=== PATIENT | male | born 1980 | race African-American/Black ===

== ENCOUNTER 2018-05-21 09:54 | Emergency (ER) | payer OTHER, MEDICAID ==
[~2018-05-21] VITALS: Ht 167.6 cm; Wt 93.0 kg
[~2018-05-21 09:54] MED LIST: NAPROSYN; NORCO; SOMA
[2018-05-21] MEDS ORDERED: SODIUM CHLORIDE 0.9% 500 ML IVB ONE (10:24)
[2018-05-21] MEDS ORDERED: KETOROLAC TROMETH 30 MG/ML 1ML VIAL IM ONE (10:30)
[2018-05-21] MEDS ORDERED: IOHEXOL 300 MG/ML 100ML BOTTLE IJ ONE (10:56)
[2018-05-21 11:00] LABS: Basophils # (auto) 0.1 uL; Basophils % (auto) 0.7 % (0.0-2.0); Eosinophils # (auto) 0 uL; Eosinophils % (auto) 0.4 % (0.0-7.0); Hematocrit 43.2 % (41.0-53.0); Lymphocytes # (auto) 1.8 uL; Lymphocytes % (auto) 18.2 % (10.0-50.0); Mean Corpuscular Hemoglobin 33.1 pg (28.0-32.0); Mean Corpuscular Hgb Conc. 34.7 g/dL (32.0-36.0); Mean Corpuscular Volume 95.6 fL (80.0-100.0); Monocytes # (auto) 0.7 uL; Monocytes % (auto) 7.4 % (0.0-12.0); Neutrophils # (auto) 7.4 uL; Neutrophils % (auto) 73.3 % (37.0-80.0); Nucleated Red Blood Cells % 0.2 %; Platelet Count (auto) 173 10^3/uL (140-450); Red Blood Cells 4.51 10^6/uL (4.5-5.90); Red Cell Distribution Width 13.6 % (11.8-14.3); White Blood Cell 10.1 10^3/uL (4.4-10.8)
[2018-05-21 11:17] LABS: Albumin 4.6 g/dL (3.4-5.0); Anion Gap 8 (5-15); Blood Urea Nitrogen 8 mg/dL (7-18); Calcium 8.9 mg/dL (8.5-10.1); Carbon Dioxide 25 mmol/L (21-32); Chloride 101 mmol/L (98-107); Glucose 129 mg/dL (74-106); Lipase 110 U/L (73-393); Partial Thromboplastin Time 30.1 sec (23.78-33.04); Potassium 3.4 mmol/L (3.5-5.1); Prothrombin Time 10.7 sec (9.27-12.13); Sodium 134 mmol/L (136-145)
[2018-05-21 11:23] LABS: Alanine Aminotransferase 46 U/L (16-61); Alkaline Phosphatase 68 U/L (45-117); Aspartate Aminotransferase 76 U/L (15-37); BUN/Creatinine Ratio 9.1; Bilirubin, Total 4.2 mg/dL (0.2-1.0); GFR African American 123 mL/min; GFR Non-African American 102 mL/min; Total Protein 7.7 g/dL (6.4-8.2)
[2018-05-21 11:29] LABS: Urine Bacteria NONE SEEN /hpf (None Seen); Urine Blood Negative /uL (Negative); Urine Mucus FEW (None Seen); Urine Specific Gravity 1.015 (1.001-1.035); Urine WBC 2 /hpf (0 - 3)
[2018-05-21] MEDS ORDERED: POTASSIUM CHL 10 Meq TABLET PO ONE (12:00)
[2018-05-21] MEDS ORDERED: HYDROcodone-ACET 5/325MG TAB PO ONE (12:45)
[2018-05-21 17:53] VITALS: BP 139/87
[2018-05-21] MEDS ORDERED: MORPHINE SULF INJ 2 MG/ML SYRINGE 1ML IV ONE (18:00)
[2018-05-21] MEDS ORDERED: ONDANSETRON HCL 4 MG/2 ML VIAL IV ONE (18:00)
== END 2018-05-21 18:14 | disposition short-term general hospital (02) ==
LOC: ER 09:54
DX: K56.690 Other partial intestinal obstruction (principal); R53.1 Weakness; K21.9 Gastro-esophageal reflux disease without esophagitis; E78.5 Hyperlipidemia, unspecified; I10 Essential (primary) hypertension; F17.210 Nicotine dependence, cigarettes, uncomplicated
CPT/HCPCS: 36415; 70491; 74177; 76705; 80053; 81001; 83690; 84484; 85025; 85610; 85730; 94761; 96374; 96375; 99285; J2270; J2405; J7040; Q9967

== ENCOUNTER 2021-07-28 08:23 | Emergency (ER) | payer BC, MEDICAID ==
[~2021-07-28] VITALS: Ht 167.6 cm; Wt 93.4 kg
[~2021-07-28 08:23] MED LIST changes: +HYDR-4833; -NORCO
[2021-07-28 10:35] VITALS: BP 136/78
[2021-07-28] MEDS ORDERED: ACET-1158 PO (10:47)
[2021-07-28] MEDS ORDERED: AMOX-277 PO (10:47)
[2021-07-28] MEDS ORDERED: DEXT1SYP9 PO (10:47)
== END 2021-07-28 10:52 | disposition home or self-care (01) ==
LOC: ER 08:23
DX: U07.1 COVID-19 (principal); J06.9 Acute upper respiratory infection, unspecified
CPT/HCPCS: 36415; 71045

== ENCOUNTER → 2021-09-10 | Outpatient (CLI) | payer BC, MEDICAID ==
[~2021-09-10] MED LIST changes: +ACET-1158 PO; +AMOX-277 PO; +DEXT1SYP9 PO
[2021-09-10 09:36] LABS: Basophils # (auto) 0 10 ^3/uL (0-0.2); Basophils % (auto) 0.8 % (0.0-2.0); Eosinophils # (auto) 0.1 10 ^3/uL (0-0.8); Eosinophils % (auto) 1.7 % (0.0-7.0); Hematocrit 37.9 % (41.0-53.0); Hemoglobin 12.6 g/dL (13.5-17.5); Lymphocytes # (auto) 1.7 10 ^3/uL (0.4-5.4); Lymphocytes % (auto) 31.9 % (10.0-50.0); Mean Corpuscular Hemoglobin 30.2 pg (28.0-32.0); Mean Corpuscular Hgb Conc. 33.3 g/dL (32.0-36.0); Mean Corpuscular Volume 90.6 fL (80.0-100.0); Monocytes # (auto) 0.3 10 ^3/uL (0-1.3); Monocytes % (auto) 6.2 % (0.0-12.0); Neutrophils # (auto) 3.2 10 ^3/uL (1.6-8.6); Neutrophils % (auto) 59.4 % (37.0-80.0); Nucleated Red Blood Cells % 0.1 %; Red Blood Cells 4.19 10^6/uL (4.5-5.90); Red Cell Distribution Width 12.6 % (11.8-14.3); White Blood Cell 5.5 10^3/uL (4.4-10.8)
[2021-09-10 10:04] LABS: Urine Bacteria NONE SEEN /hpf (None Seen); Urine Blood Negative /uL (Negative); Urine Specific Gravity 1.013 (1.001-1.035); Urine WBC <1 /hpf (0 - 3)
[2021-09-10 10:05] LABS: Albumin 4.1 g/dL (3.4-5.0); Calcium 8.9 mg/dL (8.5-10.1); Potassium 3.9 mmol/L (3.5-5.1)
[2021-09-10 10:07] LABS: Prostate Specific Antigen 1.06 ng/mL (0.0-4.0)
[2021-09-10 10:11] LABS: BUN/Creatinine Ratio 16.3; Bilirubin, Total 1.9 mg/dL (0.2-1.0); Total Protein 7.1 g/dL (6.4-8.2)
== END | disposition home or self-care (01) ==
LOC: LAB 09:09
PROVIDERS: ATTEND Student in an Organized Health Care Education/Training Program
DX: E55.9 Vitamin D deficiency, unspecified (principal); E78.1 Pure hyperglyceridemia; N40.1 Benign prostatic hyperplasia with lower urinary tract symptoms; R03.0 Elevated blood-pressure reading, without diagnosis of hypertension; R73.9 Hyperglycemia, unspecified; Z80.0 Family history of malignant neoplasm of digestive organs
CPT/HCPCS: 36415; 80053; 80061; 81001; 82306; 82378; 83036; 84153; 84403; 84443; 85025